=== PATIENT | male | born 1985 | race Caucasian/White ===

== ENCOUNTER 2017-05-18 16:48 | Emergency (ER) | payer MEDICARE, MEDICAID ==
[~2017-05-18] VITALS: Ht 185.4 cm; Wt 72.6 kg
[~2017-05-18 16:48] MED LIST: CARB200T4 PO; CARI-316 PO; GEMF600T3 PO; HYDR25TA4 PO; LEVO250T45 PO; OLAN5TAB30 PO; PAR20T PO; ZIPR80CA8 PO; doxepin
[2017-05-19] MEDS ORDERED: lamoTRIgine 25 MG TAB PO ONE (02:00)
[2017-05-19] MEDS ORDERED: QUEtiapine FUMARATE 100 MG TAB PO ONE (02:00)
[2017-05-19] MEDS ORDERED: carBAMazepine 200 MG TAB PO ONE (02:00)
[2017-05-19] MEDS ORDERED: GAB100C (07:46)
[2017-05-19] MEDS: GEODON 80 MG PO SCH ×2 (09:41→22:00)
[2017-05-19] MEDS: PANTOPRAZOLE 40 MG TAB PO SCH ×2 (09:42→22:30)
[2017-05-19] MEDS: ALPRAZolam 0.5 MG TAB PO SCH ×2 (09:42→22:30)
[2017-05-19] MEDS ORDERED: PARoxetine 20 MG TAB PO ONE (10:00)
[2017-05-19] MEDS ORDERED: ALPRAZolam 0.5 MG TAB PO ONE (15:45)
[2017-05-19] MEDS ORDERED: OLANZapine 5 MG TAB PO ONE (22:00)
[2017-05-20] MEDS ORDERED: ESCI20TA PO (09:41)
[2017-05-20] MEDS ORDERED: QUET50TA PO (09:41)
[2017-05-20] MEDS ORDERED: GABA-494 PO (09:46)
[2017-05-20] MEDS ORDERED: ALPR1TAB2 PO (09:47)
[2017-05-20] MEDS ORDERED: OMEP20CA74 PO (09:47)
[2017-05-20] MEDS ORDERED: GABAPENTIN 400 MG CAP PO SCH (10:00)
[2017-05-20] MEDS ORDERED: CITALOPRAM HYDROBR 20 MG TAB PO SCH (10:00)
[2017-05-20] MEDS ORDERED: QUEtiapine FUMARATE 100 MG TAB PO ONE (10:00)
[2017-05-20] MEDS ORDERED: carBAMazepine 200 MG TAB PO SCH (10:00)
[2017-05-20] MEDS ORDERED: QUEtiapine FUMARATE 100 MG TAB PO SCH (10:00)
[2017-05-20] MEDS: GEODON 80 MG PO SCH (10:20)
[2017-05-20] MEDS: PANTOPRAZOLE 40 MG TAB PO SCH (10:20)
[2017-05-20] MEDS: ALPRAZolam 0.5 MG TAB PO SCH (10:20)
[2017-05-20 17:57] VITALS: BP 98/58
== END 2017-05-20 18:16 | disposition short-term general hospital (02) ==
LOC: ER 16:48
DX: R45.851 Suicidal ideations (principal); F33.9 Major depressive disorder, recurrent, unspecified; F20.9 Schizophrenia, unspecified